=== PATIENT | male | born 1980 | race Caucasian/White ===

== ENCOUNTER 2017-06-12 22:42 | Emergency (ER) | payer OTHER ==
[~2017-06-12] VITALS: Ht 177.8 cm; Wt 104.0 kg
[2017-06-12 22:50] VITALS: Ht 177.8 cm; Wt 104.0 kg
[2017-06-12] MEDS ORDERED: ONDANSETRON INJ 2 MG/ML 2 ML VIAL IV STA (23:07)
[2017-06-12] MEDS ORDERED: SODIUM CHLORIDE 0.9% 1000ML 1,000 ML IV STA (23:07)
[2017-06-12] MEDS ORDERED: CLONIDINE HCL 0.1 MG TAB PO ONE (23:15)
[2017-06-12] MEDS ORDERED: DiphenhydrAMINE HCL 50 MG/ML VIAL IV STA (23:17)
--- NOTE | 2017-06-12 23:33 | EMERGENCY ROOM VISIT NOTE ---
History Report prepared by Emilia: Keith Hassan Under the Supervision of: Dr. Gabbie Padron M.D. First contact with patient: 23:05 Chief Complaint: DETOX REQUEST Stated Complaint: DETOX HERION History of Present Illness The patient is a 36 year old male who presents to the Emergency Room with a general episodic request to detox from illicit drug use that he has been doing for one week. He states that he has been taking illicit drugs for a week. He notes that he "shot up" heroin at 0400 this morning. The patient states that he has not used heroin since 2006. The patient reports using a string of different drugs recently. He notes that he used Xanax for the first time this week. He states it was in a capsule with a red gel-like substance inside and was told it was Xanax. He reports he went to [place], [place] to smoke Crack Cocaine. He states that he has been using Crack on and off for two months. He reports using Subutex, Adderall, and possibly Vicodin this week as well. He states that he ran into a friends at the grocery store today who offered to help him. She states that the patient was sweating when she saw him and told him that she was going to contact police regarding the illicit drug use and that he needed to get help. The patient states that he wants to get his life back on track and get help. The patient notes that he has been struggling with sleep loss and this may have been his initial step into using drugs. He states that he started using OTC sleep medication and then started drinking a whole bottle of NyQuil in order to sleep. He reports that he has not eaten at all today. Source of History: patient, friend Onset: one week Position: other (general) Quality: other (detox from illicit drug use) Timing: other (episodic) Associated Symptoms: + diaphoresis (sweating) Note: Notes loss of sleep. Review of Systems See HPI for pertinent positives & negatives. A total of 10 systems reviewed and were otherwise negative. Past Medical & Surgical Medical Problems: (1) Bronchitis (2) PNA (pneumonia) Social History Problems: (1) Drug use (2) IV drug abuse Family History Cancer Diabetes mellitus Heart disease Social History Smoking Status: Current Every Day Smoker Alcohol Use: occasionally Drug Use: cocaine (crack), heroin, other (Xanax, Subutext, Adderall) Marital Status: single Housing Status: other (homeless) Occupation Status: unemployed Current/Historical Medications No Active Prescriptions or Reported Meds Allergies Coded Allergies: Sulfa Drugs (Unverified Allergy, Mild, 06/12/17) Sulfamethoxazole (Unverified Allergy, Mild, 06/12/17) Trimethoprim (Unverified Allergy, Mild, 06/12/17) Uncoded Allergies: AMOXIL (Allergy, Unknown, RASH, 11/07/03) BACTRIM (Allergy, Unknown, RASH, 11/07/03) Physical Exam Vital Signs Date Time Temp Pulse Resp B/P (MAP) Pulse Ox O2 Delivery O2 Flow Rate FiO2 06/13/17 03:08 67 20 106/64 96 Room Air 06/13/17 02:01 67 12 115/66 95 Room Air 06/13/17 01:32 68 12 107/62 94 Room Air 06/13/17 00:02 76 15 137/96 100 Room Air 06/12/17 23:33 79 12 147/96 94 Room Air 06/12/17 23:28 88 06/12/17 22:50 37.1 93 18 148/103 98 Room Air Physical Exam Vital signs reviewed. General: Well-appearing, in no significant distress. HEENT: No scleral icterus, PERRLA, neck supple. Atraumatic. Cardiovascular: Regular rate and rhythm, no extra sounds. Mildly hypertensive. Pulmonary: Clear to auscultation bilaterally, normal work of breathing. Abdomen: Soft, nontender, nondistended, positive bowel sounds. Musculoskeletal: Atraumatic, no peripheral edema. Neurologic: Patient awake alert and oriented x 3, full strength in all 4 extremities. Cranial nerves 2 through 12 grossly intact. Skin: Warm, dry, no rash Medical Decision & Procedures Laboratory Results 06/12/17 23:35 Red Blood Count 4.60, Mean Corpuscular Volume 87.0, Mean Corpuscular Hemoglobin 30.7, Mean Corpuscular Hemoglobin Concent 35.3, Mean Platelet Volume 10.2, Neutrophils (%) (Auto) 69.3, Lymphocytes (%) (Auto) 19.4, Monocytes (%) (Auto) 8.8, Eosinophils (%) (Auto) 1.7, Basophils (%) (Auto) 0.7, Neutrophils # (Auto) 5.03, Lymphocytes # (Auto) 1.41, Monocytes # (Auto) 0.64, Eosinophils # (Auto) 0.12, Basophils # (Auto) 0.05 06/12/17 23:35 Test 06/12/17 22:52 06/12/17 23:35 Urine Color YELLOW Urine Appearance CLEAR (CLEAR) Urine pH 7.0 (4.5-7.5) Urine Specific [place] 1.008 (1.000-1.030) Urine Protein NEG (NEG) Urine Glucose (UA) NEG (NEG) Urine Ketones NEG (NEG) Urine Occult Blood NEG (NEG) Urine Nitrite NEG (NEG) Urine Bilirubin NEG (NEG) Urine Urobilinogen NEG (NEG) Urine Leukocyte Esterase NEG (NEG) Urine Opiates Screen NEG (NEG) Urine Methadone, Qualitative NEG (NEG) Urine Barbiturates NEG (NEG) Urine Phencyclidine (PCP) Level NEG (NEG) Ur Amphetamine/Methamphetamine NEG (NEG) MDMA (Ecstasy) Screen NEG (NEG) Urine Benzodiazepines Screen POS (NEG) Urine Cocaine Metabolite NEG (NEG) Urine Marijuana (THC) NEG (NEG) White Blood Count 7.26 K/uL (4.8-10.8) Red Blood Count 4.60 M/uL (4.7-6.1) Hemoglobin 14.1 g/dL (14.0-18.0) Hematocrit 40.0 % (42-52) Mean Corpuscular Volume 87.0 fL (80-100) Mean Corpuscular Hemoglobin 30.7 pg (25-34) Mean Corpuscular Hemoglobin Concent 35.3 g/dl (32-36) Platelet Count 183 K/uL (130-400) Mean Platelet Volume 10.2 fL (7.4-10.4) Neutrophils (%) (Auto) 69.3 % Lymphocytes (%) (Auto) 19.4 % Monocytes (%) (Auto) 8.8 % Eosinophils (%) (Auto) 1.7 % Basophils (%) (Auto) 0.7 % Neutrophils # (Auto) 5.03 K/uL (1.4-6.5) Lymphocytes # (Auto) 1.41 K/uL (1.2-3.4) Monocytes # (Auto) 0.64 K/uL (0.11-0.59) Eosinophils # (Auto) 0.12 K/uL (0-0.5) Basophils # (Auto) 0.05 K/uL (0-0.2) RDW Standard Deviation 37.8 fL (36.4-46.3) RDW Coefficient of Variation 12.0 % (11.5-14.5) Immature Granulocyte % (Auto) 0.1 % Immature Granulocyte # (Auto) 0.01 K/uL (0.00-0.02) Anion Gap 7.0 mmol/L (3-11) Est Creatinine Clear Calc Drug Dose 109.3 ml/min Estimated GFR () 95.7 Estimated GFR (Non- 82.6 BUN/Creatinine Ratio 7.0 (10-20) Calcium Level 9.1 mg/dl (8.5-10.1) Magnesium Level 2.3 mg/dl (1.8-2.4) Total Bilirubin 0.7 mg/dl (0.2-1) Direct Bilirubin 0.2 mg/dl (0-0.2) Aspartate Amino Transf (AST/SGOT) 19 U/L (15-37) Alanine Aminotransferase (ALT/SGPT) 30 U/L (12-78) Alkaline Phosphatase 66 U/L (45-117) Total Protein 7.9 gm/dl (6.4-8.2) Albumin 4.0 gm/dl (3.4-5.0) Lipase 78 U/L (73-393) Thyroid Stimulating Hormone (TSH) 1.110 uIu/ml (0.300-4.500) Salicylates Level < 1.7 mg/dl (2.8-20) Acetaminophen Level < 2 ug/ml (10-30) Ethyl Alcohol mg/dL < 3.0 mg/dl (0-3) Laboratory results per my review. Medications Administered Medications (Trade) Dose Ordered Sig/Jamison Route Start Time Stop Time Status Last Admin Dose Admin Sodium Chloride 1,000 ml @ 999 mls/hr Q1H1M STAT IV 06/12/17 23:07 06/13/17 00:07 DC 06/12/17 23:43 999 MLS/HR Ondansetron HCl (Zofran Inj) 4 mg NOW STAT IV 06/12/17 23:07 06/12/17 23:09 DC 06/12/17 23:43 4 MG Clonidine HCl (Catapres Tab) 0.2 mg NOW ONCE PO 06/12/17 23:15 06/12/17 23:16 DC 06/12/17 23:43 0.2 MG Diphenhydramine HCl (Benadryl Inj) 25 mg NOW STAT IV 06/12/17 23:17 06/12/17 23:18 DC 06/12/17 23:43 25 MG Hydroxyzine HCl (Vistaril Tab) 50 mg NOW STAT PO 06/13/17 04:27 06/13/17 04:28 DC 06/13/17 04:43 50 MG ED Course 2310: Past medical records reviewed. The patient was evaluated in room B3B. A complete history and physical examination was performed. 2307: Ordered Zofran 4 mg IV and Sodium Chloride 1,000 ml @ 999 mls/hr IV 2315: Ordered Clonidine HCl 0.2 mg PO 2317: Ordered Benadryl 25 mg IV 0022: Kim psychiatric bilingual case manager is evaluating the patient at this time. 0143: I reassessed the patient at this time. He is resting. I updated the patient. 0200: The patient is medically cleared. Medical Decision Differential diagnosis: Etiologies such as toxicologic, infection, hypoglycemia, electrolyte abnormalities, cardiac sources, intracerebral event, neurologic, as well as others were entertained. This pt was evaluated and appeared to be in no distress. IV access was obtained and laboratory work was drawn. The patient was hydrated with normal saline solution, given IV Zofran and 0.2 mg of oral clonidine. He did receive IV Benadryl 25 mg to assist with sleep. On reevaluation the patient was groggy but in no distress. Laboratory work is fairly unrevealing, significant only for benzodiazepines in the urine. Case management reviewed the situation with the patient. He is currently homeless. He states he has had some "differences " with people at [facility]. Patient does not feel he has family to contact and does not want to return to his current living environment as it is not a "good situation" for his substance abuse. The patient will require emergency funding through [facility] as he does not have health insurance. [facility] will need to be secured during business hours. Patient was made aware of the plan. He will remain in the emergency department until morning when case management is able to arrange for disposition. He was given 50 mg of p.o. Vistaril for itching complaints in the metal fabricator. Patient's case was signed out to Dr. Francois at the change of shift, pending disposition. Medication Reconcilliation Current Medication List: was personally reviewed by me Blood Pressure Screening Patient's blood pressure: Elevated blood pressure Blood pressure disposition: Elevated BP felt to be situational Impression Primary Impression: Substance abuse Scribe Attestation The scribe's documentation has been prepared under my direction and personally reviewed by me in its entirety. I confirm that the note above accurately reflects all work, treatment, procedures, and medical decision making performed by me. Departure Information Prescriptions No Active Prescriptions or Reported Meds Referrals No Doctor, Assigned (PCP) Patient Instructions My [facility]
[2017-06-12 23:54] LABS: BASO % 0.7 %; BASO ABS # 0.05 K/uL (0-0.2); EOS % 1.7 %; EOS ABS # 0.12 K/uL (0-0.5); HEMOGLOBIN 14.1 g/dL (14.0-18.0); IG# 0.01 K/uL (0.00-0.02); LYMPH % 19.4 %; LYMPH ABS # 1.41 K/uL (1.2-3.4); MEAN CORPUSCULAR HEMOGLOBIN 30.7 pg (25-34); MEAN CORPUSCULAR HGB CONC 35.3 g/dl (32-36); MEAN PLATELET VOLUME 10.2 fL (7.4-10.4); MONO % 8.8 %; MONO ABS # 0.64 K/uL (0.11-0.59); NEUT % 69.3 %; NEUT ABS # 5.03 K/uL (1.4-6.5); PLATELET COUNT 183 K/uL (130-400); RED CELL DISTRIBUTION WIDTH SD 37.8 fL (36.4-46.3); WHITE BLOOD COUNT 7.26 K/uL (4.8-10.8)
[2017-06-13 00:14] LABS: CALCIUM 9.1 mg/dl (8.5-10.1); CREATININE 1.15 mg/dl (0.60-1.40); POTASSIUM 3.7 mmol/L (3.5-5.1)
[2017-06-13 00:25] LABS: TOTAL PROTEIN 7.9 gm/dl (6.4-8.2)
[2017-06-13] MEDS ORDERED: hydrOXYzine HCL 25 MG TAB PO STA (04:27)
--- NOTE | 2017-06-13 11:18 | EMERGENCY ROOM VISIT NOTE ---
ED Visit Note I spoke with the psychiatric case planner. The patient will be discharged to a drug and alcohol facility.
[2017-06-13 11:26] VITALS: BP 132/69; PULSE 77; TEMP 37.1; O2SAT 98
== END 2017-06-13 11:38 | disposition home or self-care (01) ==
LOC: C.EDB 22:45 → C.EDA 06-13 11:38
DX: F19.10 Other psychoactive substance abuse, uncomplicated (principal); Z59.0 Homelessness; L29.9 Pruritus, unspecified; F17.200 Nicotine dependence, unspecified, uncomplicated; Z88.2 Allergy status to sulfonamides; Z88.1 Allergy status to other antibiotic agents